=== PATIENT | female | born 1990 | race Caucasian/White ===

== ENCOUNTER 2020-09-29 18:25 | Day surgery (SDC) | payer BC, MEDICAID ==
[2020-09-29] MEDS ORDERED: hydrALAZINE 20 MG/ML VIAL SLOW IVP PRN (19:41)
[2020-09-29] MEDS ORDERED: Lactated Ringer's 1,000 ML IV SCH (19:45)
[2020-09-29] MEDS ORDERED: Metoclopramide HCl 10 MG/2 ML VIAL IVP SCH (20:00)
[2020-09-29 20:21] VITALS: BMI 25.0
[2020-09-29 20:35] LABS: ALT (SGPT) 11 U/L (8-55); AST (SGOT) 14 U/L (5-34); Albumin 3.7 g/dL (3.5-5.0); Alkaline Phosphatase 63 U/L (40-110); Anion Gap 15 mmol/L (10-20); BUN (Urea Nitrogen) 9 mg/dL (7.0-18.7); Bilirubin, Total 0.4 mg/dL (0.2-1.2); Calc. Creatinine Clearance 152 mL/min (70-130); Calcium 8.6 mg/dL (7.8-10.44); Carbon Dioxide 20 mmol/L (22-29); Chloride 106 mmol/L (98-107); Globulin 2.8 g/dL (2.4-3.5); Glucose 118 mg/dL (70-105); Potassium 3.6 mmol/L (3.5-5.1); Protein, Total 6.5 g/dL (6.0-8.3); Sodium 137 mmol/L (136-145)
[2020-09-29 21:20] LABS: Bilirubin Neg (Negative); Blood, Urine Negative (Negative); Clarity Clear (Clear); Glucose, Urine (Dipstick) Normal (Negative); Ketone, Urine 150 mg/dL (Negative); Leukocyte 25 (Negative); Nitrite Negative (Negative); Protein, Urine (Dipstick) 30 mg/dl (Neg-Trace); Urobilinogen Normal mg/dL (Less than 2)
[2020-09-29 21:26] LABS: Urine Culture Reflex No No
[2020-09-29 21:33] LABS: RBC/HPF 0-3 HPF (0-3); Squamous Epithelial 0-3 HPF (0-3); WBC/HPF 0-3 HPF (0-3)
== END 2020-09-29 22:30 | disposition home or self-care (01) ==
LOC: CSHLD/OP 18:25
PROVIDERS: ATTEND Obstetrics & Gynecology
DX: O21.2 Late vomiting of pregnancy (principal); O99.891 Other specified diseases and conditions complicating pregnancy; R10.30 Lower abdominal pain, unspecified; Z3A.24 24 weeks gestation of pregnancy; Z79.899 Other long term (current) drug therapy
CPT/HCPCS: 51701; 76705; 80053; 81001; 87086; 96360; 96361; 96375; 99283; J2765

== ENCOUNTER 2022-07-13 13:15 | Day surgery (SDC) | payer BC, SELFPAY ==
[2022-07-13 13:50] VITALS: BMI 30.5
[2022-07-13] MEDS ORDERED: hydrALAZINE 20 MG/ML VIAL SLOW IVP PRN (14:09)
[2022-07-13 14:35] LABS: Bilirubin Neg (Negative); Blood, Urine Negative (Negative); Clarity Clear (Clear); Glucose, Urine (Dipstick) Normal (Negative); Ketone, Urine Negative (Negative); Leukocyte Negative (Negative); Nitrite Negative (Negative); Protein, Urine (Dipstick) Negative (Neg-Trace); Urobilinogen Normal mg/dL (Less than 2)
== END 2022-07-13 16:31 | disposition home or self-care (01) ==
LOC: CSHLD/OP 13:15
PROVIDERS: ATTEND Obstetrics & Gynecology
DX: O26.893 Other specified pregnancy related conditions, third trimester (principal); R10.2 Pelvic and perineal pain; M54.50 Low back pain, unspecified; Z79.899 Other long term (current) drug therapy; Z3A.35 35 weeks gestation of pregnancy
CPT/HCPCS: 81003; 99283

== ENCOUNTER 2022-08-03 08:31 | Inpatient (IN) | payer OTHER ==
[2022-08-03] MEDS ORDERED: Acetaminophen 500 MG TAB PO PRN (08:34)
[2022-08-03] MEDS ORDERED: Promethazine HCl 25 MG/ML VIAL IM PRN ×2 (08:34→09:37)
[2022-08-03] MEDS ORDERED: Docusate 100 MG CAP PO PRN (08:34)
[2022-08-03] MEDS ORDERED: hydrALAZINE 20 MG/ML VIAL SLOW IVP PRN ×2 (08:34→15:02)
[2022-08-03] MEDS ORDERED: Diphenoxylate HCl/Atropine Tablet PO PRN ×2 (08:34)
[2022-08-03] MEDS ORDERED: Ondansetron PF 4 MG/2 ML Vial IVP PRN ×3 (08:34→15:02)
[2022-08-03] MEDS ORDERED: Lidocaine 1% (PF) 30 ML VIAL SC PRN (08:34)
[2022-08-03] MEDS ORDERED: Carboprost 250 MCG/ML AMP IM PRN (08:34)
[2022-08-03] MEDS ORDERED: HYDROcodone/Acetaminophen 5/325 mg Tablet PO PRN ×4 (08:34→15:02)
[2022-08-03] MEDS ORDERED: Ibuprofen 800 MG TAB PO PRN (08:34)
[2022-08-03] MEDS ORDERED: Misoprostol 200 MCG TAB PR PRN (08:34)
[2022-08-03] MEDS ORDERED: Butorphanol Tartrate 1 MG/ML VIAL SLOW IVP PRN (08:34)
[2022-08-03] MEDS ORDERED: Lactated Ringer's 1,000 ML IV SCH (08:45)
[2022-08-03] MEDS ORDERED: NS w/ Oxytocin 30 units 500 ML IV SCH ×2 (08:45→15:15)
[2022-08-03] MEDS ORDERED: Fentanyl 2 mcg/Bup 0.1% Cadd 100 ML ONE (09:24)
[2022-08-03 09:34] LABS: Hemoglobin 11.9 g/dL (12.0-15.5); Mean Corpuscular Hemoglobin 31.2 pg (27.0-33.0); Mean Corpuscular Volume 91.9 fl (81.6-98.3); Mean Platelet Volume 11.1 fl (7.4-10.4); Platelet Count 211 10x3/uL (150-450); RBC Distribution Width 13.9 % (11.5-14.5); Red Blood Cell (RBC) Count 3.81 10x6/uL (3.90-5.03); White Blood Cell (WBC) Count 10.1 10x3/uL (3.5-10.5)
[2022-08-03] MEDS ORDERED: Lactated Ringer's 500 ML IV PRN (09:37)
[2022-08-03] MEDS ORDERED: Acetaminophen 325 MG TAB PO PRN (09:37)
[2022-08-03] MEDS ORDERED: Moisturizing Cream (Eucerin) 113 GM JAR TOP PRN (09:37)
[2022-08-03] MEDS ORDERED: Naloxone HCl 0.4 mg/ml Vial IVP PRN ×2 (09:37)
[2022-08-03] MEDS ORDERED: ePHEDrine Sulfate 50 MG/10 ML VIAL SLOW IVP PRN (09:37)
[2022-08-03] MEDS ORDERED: diphenhydrAMINE 50 MG/ML VIAL IVP PRN (09:37)
[2022-08-03 09:40] VITALS: BMI 29.7
[2022-08-03] MEDS ORDERED: Communication Order-Pharmacy FS SCH (09:45)
[2022-08-03] MEDS ORDERED: Fentanyl 2 mcg/Bupivacaine 0.1% Cassette 100 ML EPIDURAL SCH (09:45)
[2022-08-03 10:26] LABS: HBSAg Index 0.16 S/CO (0-0.99); HIV (1/2) Antibody/Antigen Non-Reactive (NonReactive); HIV 1/2 INDEX 0.09 S/CO (<1.00); Hep B Surf Ag Non-Reactive S/CO (NonReactive)
[2022-08-03] MEDS ORDERED: Dexmedetomidine 200 MCG/2 ML VIAL ONE (10:43)
[2022-08-03 11:16] LABS: Syphilis Antibody Nonreactive (Nonreactive); Syphilis Antibody Index 0.04 S/CO (<1.00 Non-Reactive)
[2022-08-03] MEDS ORDERED: Bupivacaine 0.25% HCL 30 ML VIAL ONE (13:11)
[2022-08-03] MEDS ORDERED: Benzocaine-Menthol 82.5 ML CAN TOP PRN (15:02)
[2022-08-03] MEDS ORDERED: Milk Of Magnesia 30 ML UDCUP PO PRN (15:02)
[2022-08-03] MEDS ORDERED: Boostrix 0.5 ML (Tdap) VIAL (>/=7 yrs of age) IM ONE (15:02)
[2022-08-03] MEDS ORDERED: Zolpidem Tartrate 5 MG TAB PO PRN (15:02)
[2022-08-03] MEDS ORDERED: Lanolin Ointment 7 GM TUBE TOP PRN (15:02)
[2022-08-03] MEDS ORDERED: diphenhydrAMINE 25 MG CAP PO PRN (15:02)
[2022-08-03] MEDS ORDERED: Bisacodyl 10 MG SUPP PR PRN (15:02)
[2022-08-03] MEDS ORDERED: Misoprostol 200 MCG TAB VAG PRN (15:02)
[2022-08-03] MEDS ORDERED: Preparation H Ointment 28 GM TUBE PR PRN (15:02)
[2022-08-03] MEDS: Ferrous Sulfate 325 MG TAB PO SCH (17:37)
[2022-08-03] MEDS: Docusate 100 MG CAP PO SCH (19:42)
[2022-08-03] MEDS: Ibuprofen 800 MG TAB PO SCH (19:42)
[2022-08-04] MEDS: Ibuprofen 800 MG TAB PO SCH ×3 (04:25→21:09)
[2022-08-04] MEDS: Ferrous Sulfate 325 MG TAB PO SCH ×2 (07:47→13:22)
[2022-08-04] MEDS: Docusate 100 MG CAP PO SCH ×2 (07:47→21:09)
[2022-08-05] MEDS: Ibuprofen 800 MG TAB PO SCH (05:03)
[2022-08-05 07:45] VITALS: BP 115/73; TEMP 97.6
[2022-08-05] MEDS: Docusate 100 MG CAP PO SCH (08:07)
[2022-08-05] MEDS: Ferrous Sulfate 325 MG TAB PO SCH (08:08)
== END 2022-08-05 11:55 | disposition home or self-care (01) | DRG 807 ==
LOC: CSHLD 08:31 → CSHPP 17:05
PROVIDERS: ADMIT Obstetrics & Gynecology; ATTEND Obstetrics & Gynecology
PROC: 10E0XZZ Delivery of Products of Conception, External Approach (ICD-10-PCS; principal; 2022-08-03)
PROC: 10907ZC Drainage of Amniotic Fluid, Therapeutic from Products of Conception, Via Natural or Artificial Opening (ICD-10-PCS; 2022-08-03)
DX: O69.4XX0 Labor and delivery complicated by vasa previa, not applicable or unspecified (principal); Z37.0 Single live birth; Z3A.38 38 weeks gestation of pregnancy; O69.2XX0 Labor and delivery complicated by other cord entanglement, with compression, not applicable or unspecified; O69.89X0 Labor and delivery complicated by other cord complications, not applicable or unspecified; Z79.899 Other long term (current) drug therapy
CPT/HCPCS: 51702; 85027; 86780; 86850; 86900; 86901; 87340; 87389; J2405; J2590; S0020